=== PATIENT | male | born 1990 | race Caucasian/White ===

== ENCOUNTER 2017-10-06 18:29 | Emergency (ER) | payer OTHER ==
[~2017-10-06] VITALS: Ht 170.2 cm; Wt 87.0 kg
[2017-10-06] MEDS ORDERED: BENADRYL50 MG PO (19:30)
[2017-10-06] MEDS ORDERED: PEPCID20 MG PO (19:30)
[2017-10-06 20:07] VITALS: BP 128/86
== END 2017-10-06 20:12 | disposition home or self-care (01) ==
LOC: EME 18:29
DX: L25.9 Unspecified contact dermatitis, unspecified cause (principal); T49.0X5A Adverse effect of local antifungal, anti-infective and anti-inflammatory drugs, initial encounter
CPT/HCPCS: 99281; 99284; J1100

== ENCOUNTER 2017-10-07 22:16 | Emergency (ER) | payer OTHER ==
[~2017-10-07] VITALS: Ht 170.2 cm; Wt 88.4 kg
[~2017-10-07 22:16] MED LIST: BENADRYL50 MG PO; PEPCID20 MG PO
[2017-10-07 23:58] LABS: HEMATOCRIT 42.3 % (38.0-50.0); MCH 29.3 PG (29.0-34.0); MCHC 34.8 G/DL (30.0-36.0); MCV 84.4 FL (86-99); MEAN PLAT.VOLUME 12.3 uM^3 (9.0-12.4); PLATELET COUNT 219 K/uL (156-360); RBC DIS.WIDTH-CV 12.2 % (11.8-14.6); RBC DIS.WIDTH-SD 36.8 % (39-53); RED BLOOD COUNT 5.01 M/uL (4.00-5.50)
[2017-10-08 00:09] LABS: CHLORIDE 106 mEq/L (99-109); SODIUM 140 mEq/L (136-147)
[2017-10-08 00:11] LABS: GLUCOSE 119 mg/dL (70-99)
[2017-10-08 00:12] LABS: ANION GAP 9 MEQ/L (2-14)
[2017-10-08 00:15] LABS: GFR ESTIMATE (CALCULATED) > 59 mL/min/ (58.99-99999)
[2017-10-08 00:16] LABS: UREA NITROGEN (BUN) 19 mg/dL (9-23)
[2017-10-08] MEDS ORDERED: PREDNISONE20 MG PO (00:28)
[2017-10-08 00:55] VITALS: BP 144/76
== END 2017-10-08 00:50 | disposition home or self-care (01) ==
LOC: EME 22:16
PROVIDERS: Physician Assistant
DX: L30.9 Dermatitis, unspecified (principal)
CPT/HCPCS: 80048; 85027; 99281; 99284; J7512; Q0177